=== PATIENT | male | born 1950 | race Caucasian/White ===

== ENCOUNTER 2017-05-19 10:14 | Inpatient (IN) | payer MEDICARE, MEDICAID ==
[~2017-05-19] VITALS: Ht 175.3 cm; Wt 64.0 kg
[~2017-05-19 10:14] MED LIST: ALEN70TA48 PO; CALC200T29 PO; DOCU250C91 PO; LAMO100 PO; LEVO112T7 PO; MULT-1239 PO; OLAN15TA2 PO; RISP4 PO; VITAD400 PO
[2017-05-19] MEDS ORDERED: MIRALAX PO (10:22)
[2017-05-19 10:46] LABS: AMPHET/METH SCREEN,URINE NEGATIVE (NEGATIVE); BARBITURATE SCREEN, URINE NEGATIVE (NEGATIVE); BENZODIAZEPINES SCREEN,URINE NEGATIVE (NEGATIVE); CANNABINOID SCREEN,URINE NEGATIVE (NEGATIVE); COCAINE SCREEN,URINE NEGATIVE (NEGATIVE); METHADONE SCREEN, URINE NEGATIVE (NEGATIVE); OPIATE SCREEN,URINE NEGATIVE (NEGATIVE)
[2017-05-19 10:47] LABS: PHENCYCLIDINE SCREEN,URINE NEGATIVE (NEGATIVE)
[2017-05-19 11:10] LABS: APPEARANCE,URINE CLEAR (CLEAR); BILIRUBIN,URINE NEGATIVE (NEGATIVE); GLUCOSE, URINE (UA) NEGATIVE (NEGATIVE); KETONES,URINE NEGATIVE (NEGATIVE); LEUKOCYTE ESTERASE ,URINE NEGATIVE (NEGATIVE); NITRATE,URINE NEGATIVE (NEGATIVE); OCCULT BLOOD,URINE NEGATIVE (NEGATIVE); PROTEIN,URINE NEGATIVE (NEGATIVE)
[2017-05-19 11:18] LABS: BACTERIA,URINE Rare /HPF (None Seen); RBC,URINE None Seen /HPF (0-2); SQUAMOUS EPITHELIAL CELL,UR Rare /LPF (None Seen)
[2017-05-19 11:29] LABS: BASOPHILS % (AUTO) 0.4 % (0.0-2.0); EOSINOPHILS % (AUTO) 5.1 % (1.0-6.0); HEMATOCRIT 42.5 % (41-53); HEMOGLOBIN 14.7 g/dL (13.5-17.5); LYMPHOCYTES % (AUTO) 23.4 % (22.0-44.0); MEAN CORPUSCULAR HEMOGLOBIN 32.6 pg (26.0-34.0); MEAN CORPUSCULAR HGB CONC 34.5 G/dL (31.0-37.0); MEAN CORPUSCULAR VOLUME 94 fL (80-100); MONOCYTES # (AUTO) 1.3 K/uL (0.1-1.0); MONOCYTES % (AUTO) 14.3 % (2.0-9.0); NEUTROPHILS % (AUTO) 56.8 % (40.0-70.0); PLATELET COUNT (AUTO) 473 K/uL (150-450); RED CELL DISTRIBUTION WIDTH 13.4 % (11.5-14.5)
[2017-05-19 11:48] LABS: ALANINE AMINOTRANSFERASE 54 U/L (12-78); ALBUMIN 2.7 g/dL (3.4-5.0); ALKALINE PHOSPHATASE 60 U/L (46-116); ANION GAP 6 mmol/L (8-16); ASPARTATE AMINOTRANSFERASE 41 U/L (15-37); BILIRUBIN,TOTAL 0.6 mg/dL (0.1-1.0); CARBON DIOXIDE 34 mmol/L (22-29); CHLORIDE 104 mmol/L (98-107); CREATININE 1.27 mg/dL (0.60-1.30); GLOMERULAR FILTR. RATE CALC 57 mL/min (>60); GLUCOSE,RANDOM 93 mg/dL (70-110); POTASSIUM 4.2 mmol/L (3.5-5.1); SODIUM SERUM 144 mmol/L (136-145); TOTAL PROTEIN, SERUM 7.4 g/dL (6.4-8.2); UREA NITROGEN, BLOOD 18 mg/dL (7-18)
[2017-05-19 11:50] LABS: CALCIUM, TOTAL 12.3 mg/dL (8.8-10.5)
[2017-05-19 12:36] LABS: CREATINE KINASE, TOTAL 52 U/L (39-308); FREE T4 (FREE THYROXINE) 1.81 ng/dL (0.76-1.46); PHOSPHORUS 3.4 mg/dL (2.5-4.9); THYROID STIMULATING HORMONE 2.56 uIU/mL (0.36-3.74)
[2017-05-19] MEDS ORDERED: SODIUM CHLORIDE 0.9% 1,000 ML IV ONE (13:30)
[2017-05-19] MEDS ORDERED: LORazepam 2 MG TABLET PO PRN (14:15)
[2017-05-19] MEDS ORDERED: ZOLPIDEM TARTRATE 10 MG TABLET PO PRN (14:15)
[2017-05-19] MEDS ORDERED: HALOPERIDOL 5 MG TABLET PO PRN (14:15)
[2017-05-19] MEDS ORDERED: DOCUSATE SODIUM 250 MG CAPSULE PO PRN (19:00)
[2017-05-19] MEDS ORDERED: IBUPROFEN 400 MG TABLET PO PRN (19:00)
[2017-05-19] MEDS ORDERED: ACETAMINOPHEN 325 MG TABLET PO PRN (19:00)
[2017-05-19 19:33] VITALS: BP 110/62
[2017-05-19 23:18] VITALS: BP 110/62
[2017-05-20 03:24] VITALS: BP 127/78
[2017-05-20] MEDS: LEVOTHYROXINE SODIUM 75 MCG TABLET PO SCH (06:55)
[2017-05-20 07:13] LABS: ALBUMIN 2.4 g/dL (3.4-5.0); BILIRUBIN,TOTAL 0.4 mg/dL (0.1-1.0); CALCIUM, TOTAL 11.1 mg/dL (8.8-10.5); CHOL/HDL RATIO 2.5 (4.2-7.3); CREATININE 1.21 mg/dL (0.60-1.30); POTASSIUM 3.9 mmol/L (3.5-5.1)
[2017-05-20 08:30] VITALS: BP 133/96
[2017-05-20] MEDS: CHOLECALCIFEROL (VIT D3) 400 UNITS TABLET PO SCH (08:42)
[2017-05-20] MEDS ORDERED: LORATADINE 10 MG TABLET PO PRN (09:00)
[2017-05-20] MEDS ORDERED: IBUPROFEN 400 MG TABLET PO PRN (16:15)
[2017-05-20] MEDS ORDERED: ACETAMINOPHEN 325 MG TABLET PO PRN (16:15)
[2017-05-20] MEDS ORDERED: OLAN5TAB2 PO (16:17)
[2017-05-20] MEDS ORDERED: LEVO75 PO (16:17)
[2017-05-20 17:00] VITALS: BP 126/81
[2017-05-20] MEDS: OLANZapine 10 MG TABLET PO SCH (21:01)
[2017-05-21 00:05] VITALS: BP 124/80
[2017-05-21] MEDS: LEVOTHYROXINE SODIUM 75 MCG TABLET PO SCH (06:03)
[2017-05-21 08:54] VITALS: BP 102/68
[2017-05-21] MEDS: CHOLECALCIFEROL (VIT D3) 400 UNITS TABLET PO SCH (09:00)
[2017-05-21 17:02] VITALS: BP 105/69
[2017-05-21] MEDS: OLANZapine 10 MG TABLET PO SCH (20:10)
[2017-05-22 05:34] VITALS: BP 114/76
[2017-05-22] MEDS: LEVOTHYROXINE SODIUM 75 MCG TABLET PO SCH (06:53)
[2017-05-22] MEDS: CHOLECALCIFEROL (VIT D3) 400 UNITS TABLET PO SCH (08:43)
[2017-05-22 08:55] VITALS: BP 117/71
[2017-05-22 18:33] VITALS: BP 128/75
[2017-05-22] MEDS: OLANZapine 10 MG TABLET PO SCH (21:24)
[2017-05-23] MEDS: LEVOTHYROXINE SODIUM 75 MCG TABLET PO SCH (06:38)
[2017-05-23] MEDS: CHOLECALCIFEROL (VIT D3) 400 UNITS TABLET PO SCH (10:44)
[2017-05-23 12:51] VITALS: BP 126/72
[2017-05-23 17:58] VITALS: BP 119/64
[2017-05-23] MEDS: OLANZapine 10 MG TABLET PO SCH (20:26)
[2017-05-24 01:35] VITALS: BP 163/78
[2017-05-24] MEDS: LEVOTHYROXINE SODIUM 75 MCG TABLET PO SCH (06:17)
[2017-05-24 08:00] VITALS: BP 147/70
[2017-05-24] MEDS: CHOLECALCIFEROL (VIT D3) 400 UNITS TABLET PO SCH (08:53)
[2017-05-24 16:37] VITALS: BP 138/79
[2017-05-24] MEDS: OLANZapine 10 MG TABLET PO SCH (20:35)
[2017-05-25 02:53] VITALS: BP 112/67
[2017-05-25] MEDS: LEVOTHYROXINE SODIUM 75 MCG TABLET PO SCH (06:15)
[2017-05-25 08:00] VITALS: BP 136/87
[2017-05-25] MEDS: CHOLECALCIFEROL (VIT D3) 400 UNITS TABLET PO SCH (09:30)
[2017-05-25] MEDS: DIVALPROEX SODIUM 250 MG ER TABLET PO SCH ×2 (09:30→16:51)
[2017-05-25 16:40] VITALS: BP 121/67
[2017-05-25] MEDS: OLANZapine 10 MG TABLET PO SCH (20:01)
[2017-05-26] MEDS: LEVOTHYROXINE SODIUM 75 MCG TABLET PO SCH (06:37)
[2017-05-26 08:05] VITALS: BP 138/92
[2017-05-26] MEDS: DIVALPROEX SODIUM 250 MG ER TABLET PO SCH ×2 (09:01→16:33)
[2017-05-26] MEDS: CHOLECALCIFEROL (VIT D3) 400 UNITS TABLET PO SCH (09:01)
[2017-05-26 17:00] VITALS: BP 132/84
[2017-05-26] MEDS: OLANZapine 10 MG TABLET PO SCH (20:27)
[2017-05-27 06:45] LABS: BASOPHILS % (AUTO) 0.4 % (0.0-2.0); EOSINOPHILS % (AUTO) 3.9 % (1.0-6.0); HEMATOCRIT 43.5 % (41-53); LYMPHOCYTES # (AUTO) 3.7 K/uL (1.0-4.8); LYMPHOCYTES % (AUTO) 44.1 % (22.0-44.0); MEAN CORPUSCULAR HEMOGLOBIN 32.8 pg (26.0-34.0); MEAN CORPUSCULAR HGB CONC 34.4 G/dL (31.0-37.0); MEAN CORPUSCULAR VOLUME 95 fL (80-100); MONOCYTES # (AUTO) 1.3 K/uL (0.1-1.0); MONOCYTES % (AUTO) 15.6 % (2.0-9.0); PLATELET COUNT (AUTO) 456 K/uL (150-450); RED BLOOD CELL COUNT(AUTO) 4.57 MIL/uL (4.50-5.90)
[2017-05-27] MEDS: LEVOTHYROXINE SODIUM 75 MCG TABLET PO SCH (06:59)
[2017-05-27 07:04] LABS: ALANINE AMINOTRANSFERASE 53 U/L (12-78); ALBUMIN 2.6 g/dL (3.4-5.0); ALKALINE PHOSPHATASE 54 U/L (46-116); ANION GAP 7 mmol/L (8-16); ASPARTATE AMINOTRANSFERASE 51 U/L (15-37); BILIRUBIN,TOTAL 0.6 mg/dL (0.1-1.0); CALCIUM, TOTAL 10.1 mg/dL (8.8-10.5); CARBON DIOXIDE 30 mmol/L (22-29); CHLORIDE 105 mmol/L (98-107); CREATININE 1.02 mg/dL (0.60-1.30); GLOMERULAR FILTR. RATE CALC > 60 mL/min (>60); GLUCOSE,RANDOM 95 mg/dL (70-110); POTASSIUM 4.2 mmol/L (3.5-5.1); SODIUM SERUM 142 mmol/L (136-145); TOTAL PROTEIN, SERUM 7.5 g/dL (6.4-8.2); UREA NITROGEN, BLOOD 32 mg/dL (7-18); VALPROIC ACID 39 mcg/mL (50-100)
[2017-05-27 08:47] VITALS: BP 118/59
[2017-05-27] MEDS: CHOLECALCIFEROL (VIT D3) 400 UNITS TABLET PO SCH (09:09)
[2017-05-27] MEDS: DIVALPROEX SODIUM 250 MG ER TABLET PO SCH ×2 (09:09→17:22)
[2017-05-27 18:52] VITALS: BP 125/79
[2017-05-27] MEDS: OLANZapine 10 MG TABLET PO SCH (20:11)
[2017-05-28] MEDS: LEVOTHYROXINE SODIUM 75 MCG TABLET PO SCH (06:57)
[2017-05-28] MEDS: CHOLECALCIFEROL (VIT D3) 400 UNITS TABLET PO SCH (09:05)
[2017-05-28] MEDS: DIVALPROEX SODIUM 250 MG ER TABLET PO SCH ×2 (09:05→16:20)
[2017-05-28 09:36] VITALS: BP 135/78
[2017-05-28 16:52] VITALS: BP 126/64
[2017-05-28] MEDS: OLANZapine 10 MG TABLET PO SCH (20:30)
[2017-05-29] MEDS: LEVOTHYROXINE SODIUM 75 MCG TABLET PO SCH (06:19)
[2017-05-29] MEDS: DIVALPROEX SODIUM 250 MG ER TABLET PO SCH ×2 (08:55→16:37)
[2017-05-29] MEDS: CHOLECALCIFEROL (VIT D3) 400 UNITS TABLET PO SCH (08:55)
[2017-05-29 10:27] VITALS: BP 157/75
[2017-05-29 17:00] VITALS: BP 123/69
[2017-05-29] MEDS: OLANZapine 10 MG TABLET PO SCH (20:10)
[2017-05-30] MEDS: LEVOTHYROXINE SODIUM 75 MCG TABLET PO SCH (06:54)
[2017-05-30 08:05] VITALS: BP 119/71
[2017-05-30] MEDS: DIVALPROEX SODIUM 250 MG ER TABLET PO SCH ×2 (09:01→16:18)
[2017-05-30] MEDS: CHOLECALCIFEROL (VIT D3) 400 UNITS TABLET PO SCH (09:02)
[2017-05-30 17:39] VITALS: BP 120/72
[2017-05-30] MEDS: OLANZapine 10 MG TABLET PO SCH (20:13)
[2017-05-31] MEDS: LEVOTHYROXINE SODIUM 75 MCG TABLET PO SCH (06:53)
[2017-05-31 08:00] VITALS: BP 113/79
[2017-05-31] MEDS: DIVALPROEX SODIUM 250 MG ER TABLET PO SCH ×2 (09:34→16:18)
[2017-05-31] MEDS: CHOLECALCIFEROL (VIT D3) 400 UNITS TABLET PO SCH (09:35)
[2017-05-31 16:30] VITALS: BP 135/78
[2017-05-31] MEDS: OLANZapine 10 MG TABLET PO SCH (20:32)
[2017-06-01 05:45] VITALS: BP 115/78
[2017-06-01] MEDS: LEVOTHYROXINE SODIUM 75 MCG TABLET PO SCH (06:48)
[2017-06-01 08:00] VITALS: BP 139/71
[2017-06-01] MEDS: CHOLECALCIFEROL (VIT D3) 400 UNITS TABLET PO SCH (08:02)
[2017-06-01] MEDS: DIVALPROEX SODIUM 250 MG ER TABLET PO SCH ×2 (08:02→16:12)
[2017-06-01 19:21] VITALS: BP 130/69
[2017-06-01] MEDS: OLANZapine 10 MG TABLET PO SCH (20:33)
[2017-06-02] MEDS: LEVOTHYROXINE SODIUM 75 MCG TABLET PO SCH (06:58)
[2017-06-02] MEDS: CHOLECALCIFEROL (VIT D3) 400 UNITS TABLET PO SCH (09:08)
[2017-06-02] MEDS: DIVALPROEX SODIUM 250 MG ER TABLET PO SCH ×2 (09:08→16:38)
[2017-06-02 09:13] VITALS: BP 121/82
[2017-06-02 19:19] VITALS: BP 111/72
[2017-06-02] MEDS: OLANZapine 10 MG TABLET PO SCH (20:08)
[2017-06-03 03:26] VITALS: BP 125/81
[2017-06-03] MEDS: LEVOTHYROXINE SODIUM 75 MCG TABLET PO SCH (06:38)
[2017-06-03] MEDS: CHOLECALCIFEROL (VIT D3) 400 UNITS TABLET PO SCH (09:33)
[2017-06-03] MEDS: DIVALPROEX SODIUM 250 MG ER TABLET PO SCH ×2 (09:33→16:17)
[2017-06-03 09:34] VITALS: BP 130/87
[2017-06-03] MEDS: FLUTICASONE PROPIONATE 50 MCG/SPRAY 16 GM NASAL SPRAY NASAL PRN (09:34)
[2017-06-03 17:05] VITALS: BP 125/76
[2017-06-03] MEDS: OLANZapine 10 MG TABLET PO SCH (21:41)
[2017-06-04] MEDS: LEVOTHYROXINE SODIUM 75 MCG TABLET PO SCH (06:15)
[2017-06-04 08:53] VITALS: BP 118/75
[2017-06-04] MEDS: DIVALPROEX SODIUM 250 MG ER TABLET PO SCH ×2 (09:05→17:38)
[2017-06-04] MEDS: FLUTICASONE PROPIONATE 50 MCG/SPRAY 16 GM NASAL SPRAY NASAL PRN (09:06)
[2017-06-04] MEDS: CHOLECALCIFEROL (VIT D3) 400 UNITS TABLET PO SCH (09:06)
[2017-06-04] MEDS: OLANZapine 10 MG TABLET PO SCH (21:07)
[2017-06-04 21:43] VITALS: BP 103/63
[2017-06-05 04:06] VITALS: BP 109/68
[2017-06-05] MEDS: LEVOTHYROXINE SODIUM 75 MCG TABLET PO SCH (06:52)
[2017-06-05] MEDS: CHOLECALCIFEROL (VIT D3) 400 UNITS TABLET PO SCH (08:55)
[2017-06-05] MEDS: DIVALPROEX SODIUM 250 MG ER TABLET PO SCH (08:55)
[2017-06-05] MEDS: FLUTICASONE PROPIONATE 50 MCG/SPRAY 16 GM NASAL SPRAY NASAL PRN (08:56)
[2017-06-05 09:10] VITALS: BP 137/75
[2017-06-05] MEDS ORDERED: OLAN10TA3 PO (10:18)
[2017-06-05] MEDS ORDERED: DIVA250T45 PO (10:18)
== END 2017-06-05 14:00 | disposition home or self-care (01) | DRG 885 ==
LOC: EMS 10:14 → 3EI 16:38
PROVIDERS: ADMIT Psychiatry & Neurology Psychiatry; ATTEND Psychiatry & Neurology Psychiatry
DX: F20.0 Paranoid schizophrenia (principal); E43 Unspecified severe protein-calorie malnutrition; J18.0 Bronchopneumonia, unspecified organism; J44.9 Chronic obstructive pulmonary disease, unspecified; E03.9 Hypothyroidism, unspecified; E83.52 Hypercalcemia; F17.200 Nicotine dependence, unspecified, uncomplicated; K59.09 Other constipation; M19.90 Unspecified osteoarthritis, unspecified site; M81.0 Age-related osteoporosis without current pathological fracture; E56.9 Vitamin deficiency, unspecified; F12.90 Cannabis use, unspecified, uncomplicated; R45.87 Impulsiveness; R45.84 Anhedonia; F19.10 Other psychoactive substance abuse, uncomplicated; Z91.19 Patient's noncompliance with other medical treatment and regimen; Z71.6 Tobacco abuse counseling; Z71.89 Other specified counseling; Z91.5 Personal history of self-harm; Z68.20 Body mass index [BMI] 20.0-20.9, adult
CPT/HCPCS: 82310; 83735; 84100; 84439; 84443; 93005; 96360; 99285; G0480; J7030